=== PATIENT | female | born 1960 | race Caucasian/White ===

== ENCOUNTER 2016-07-15 06:15 | Emergency (ER) | payer OTHER ==
[2016-07-15 06:20] VITALS: TEMP 98.2; O2SAT 94
--- NOTE | 2016-07-15 06:56 | EDPHY ---
HPI/HX/ROS/PE/MDM Narrative: CHIEF COMPLAINT: Atraumatic right hand pain. HPI: This is a 55-year-old female presenting with 3 days of atraumatic right hand pain. The worst pain is in the radial aspect of her hand and does not radiate. This morning when she woke up her hand was severely swollen. She denies falls, traumas, or other complaints. She has been treating the pain with Ibuprofen. REVIEW OF SYSTEMS: Aside from elements discussed in the HPI, a comprehensive 10-point review of systems was reviewed and is negative. PMH: Hypertension, hysterectomy. SOCIAL HISTORY: Works in [employer]. PHYSICAL EXAM: General:Patient is alert, in no acute distress. ENT:Eyes are normal to inspection. ENT inspection normal. Neck: Normal inspection. Full range of motion. Respiratory:No respiratory distress. Breath sounds normal bilaterally. Cardiovascular: Regular rate and rhythm. Strong peripheral pulses. Normal cap refill. Abdomen:The abdomen is nontender to palpation. There are no peritoneal signs. There are normal bowel sounds. Back: Normal to inspection. No tenderness to palpation. Skin: Normal color. No rash. Warm and dry. Extremities: Normal appearance. Right hand: Tenderness along base of radial aspect of thumb and of 1st digital webspace muscle. Neuro: Oriented x3. Normal motor function. Normal sensory function. MDM: This patient presents with nontraumatic pain and swelling of her right wrist, suspicious for de Quervain's tenosynovitis. There is no evidence of trauma so I do not think an x-ray is indicated. The patient has no proximal swelling to suggest DVT and no erythema to suggest infectious process. We will place her in a thumb spica splint and give her follow up with occupational health and hand specialist. General Time Seen by Provider: 07/15/16 06:55 Initial Vital Signs: Initial Vital Signs Temperature (C) 36.8 C 07/15/16 06:18 Heart Rate 65 07/15/16 06:18 Respiratory Rate 16 07/15/16 06:18 Blood Pressure 159/88 H 07/15/16 06:18 O2 Sat (%) 94 07/15/16 06:18 O2 Delivery Mode Room Air Allergies/Adverse Reactions: dexamethasone [From Decadron] Allergy (Verified 07/15/16 06:21) dexamethasone sod phosphate [From Decadron] Allergy (Verified 07/15/16 06:21) erythromycin base Allergy (Verified 07/15/16 06:21) Home Medications: Medication Instructions Recorded Amlodipine Besylate 5 mg PO 11/24/11 Atenolol 100 mg PO 11/24/11 Hydrochlorothiazide 25 mg PO DAILY 11/24/11 [Hydrochlorothiazide 25 MG (RX)] Lisinopril 40 mg PO 11/24/11 Departure - Departure Disposition: Home, Routine, Self-Care Clinical Impression: Tenosynovitis, de Quervain Condition: Good Instructions: Arthralgia (ED) Additional Instructions: Call Dr. Stein, hand surgery, today to set up a follow up appointment, or occupational health specialist. Take 600mg Ibuprofen 3 times daily as needed for pain. Return to the emergency department if you experience serious worsening of condition. Referrals: Katelin Fleming MD [Primary Care Provider] - As per Instructions Lakshmi Stein MD [Medical Doctor] - As per Instructions Report Scribed for: Rian Griffiths Report Scribed by: Tal Niño Date of Report: 07/15/16 Time of Report: 06:55 Physician Review and Approval Statement: Portions of this note were transcribed by a biomedical engineering technologist. I personally performed a history, physical exam, medical decision making, and confirmed accuracy of information the transcribed note.
[2016-07-15 07:35] VITALS: BP 175/76; PULSE 63; RESP 18
== END 2016-07-15 07:34 | disposition home or self-care (01) ==
DX: M65.4 Radial styloid tenosynovitis [de Quervain] (principal); I10 Essential (primary) hypertension
CPT/HCPCS: L3807

== ENCOUNTER → 2016-07-16 | Outpatient (CLI) | payer OTHER | LOC: FIMAGING 12:21 | PROVIDERS: ATTEND Family Medicine | DX: M25.531 Pain in right wrist (principal); R93.6 Abnormal findings on diagnostic imaging of limbs ==

== ENCOUNTER 2018-08-26 09:43 | Emergency (ER) | payer OTHER ==
--- NOTE | 2018-08-26 09:52 | EDPHY ---
H & P Time Seen by Provider: 08/26/18 09:51 - Medical/Surgical History Hx Asthma: No Hx Chronic Respiratory Disease: No Hx Diabetes: No Hx Cardiac Disease: No Hx Renal Disease: No Hx Cirrhosis: No Hx Alcoholism: No Hx HIV/AIDS: No Hx Splenectomy or Spleen Trauma: No Other PMH: HTN, hysterectomy - Social History Smoking Status: Heavy smoker Constitutional: Initial Vital Signs Temperature (C) 36.7 C 08/26/18 09:51 Heart Rate 103 H 08/26/18 09:51 Respiratory Rate 18 08/26/18 09:51 Blood Pressure 160/95 H 08/26/18 09:51 O2 Sat (%) 98 08/26/18 09:51 O2 Delivery Mode Room Air Allergies/Adverse Reactions: dexamethasone [From Decadron] Allergy (Verified 08/26/18 10:01) dexamethasone sod phosphate [From Decadron] Allergy (Verified 08/26/18 10:01) erythromycin base Allergy (Verified 08/26/18 10:01) Home Medications: Medication Instructions Recorded Amlodipine Besylate 5 mg PO 11/24/11 Atenolol 100 mg PO 11/24/11 Hydrochlorothiazide 25 mg PO DAILY 11/24/11 [Hydrochlorothiazide 25 MG (RX)] Lisinopril 40 mg PO 11/24/11 Apixaban [Eliquis] 5 mg PO BID #60 tab 08/26/18 Atenolol [Tenormin 25 mg (*)] 25 mg PO HS #30 tab 08/26/18 Medical Decision Making ED Course/Re-evaluation: CHIEF COMPLAINT: Abnormal EKG HISTORY OF PRESENT ILLNESS: The patient is a 58 y/o female with a history of hypertension complaining of dizziness and abnormal blood pressure for several weeks. The patient takes Amlodipine and Atenolol for her blood pressure. Around 3 weeks ago the shape of her Amlodipine changed and she started feeling dizzy. She stopped taking this pill as she had a visit with her PCP soon. She started taking her old Amlodipine pill as she had some left over. However, she ran our 3-4 days ago and has not taken any Amlodipine for those days. Today she saw her PCP who noticed that the patient had an abnormal EKG and hypertension. Currently she feels like her BP is irregular, but she denies a pounding in her chest or any chest pain. She denies seeing a cell operator. No fever, headache, body aches, lightheadedness, chest pain, shortness of breath, cough, abdominal pain, urinary or bowel complaints, numbness, paresthesias. REVIEW OF SYSTEMS: A comprehensive 10 system review of systems is otherwise negative aside from elements mentioned in the history of present illness and medical decision making. PHYSICAL EXAM: HR: 107, BP: 231/123, O2 Sat, RR. Temp noted General Appearance: Alert, well hydrated, appropriate, and non-toxic appearing. Head: Atraumatic without scalp tenderness or obvious injury Eyes: Pupils equal, round, reactive to light and accommodation, EOMI, no trauma , no injection. Ears: Clear bilaterally, no perforation, normal landmarks Nose: Atraumatic, no rhinorrhea, clear. Throat: There is no erythema or exudates, no lesions, normal tonsils, mucus membranes moist. Neck: Supple, 2+ carotid upstroke, nontender, no lymphadenopathy. Respiratory: No retractions, no distress, no wheezes, and no accessory muscle use. Lungs are clear to auscultation bilaterally. Cardiovascular: Regular rate and rhythm, no murmurs, rubs, or gallops. Bilateral carotid, radial, dorsalis pedis, and posterior tibial pulses intact. Good capillary refill all extremities. Gastrointestinal: Abdomen is soft, nontender, non-distended, no masses, no rebound, no guarding, no peritoneal signs. Musculoskeletal: Normal active ROM of all extremities, atraumatic. Neurological: Alert, appropriate, and interactive. The patient has normal DTRs and non-focal cranial nerves, motor, sensory, and cerebellar exam. Skin: No rashes, good turgor, no nodules on palpation. Past medical history: Hypertension Past surgical history: Hysterectomy Family history: Denies Social history: Employed at [employer], lives in [place], DIAGNOSTICS/PROCEDURES/CRITICAL CARE TIME: EKG: The 12 lead EKG was interpreted by myself as atrial fibrillation with a rate of 99. See hard copy and/or "tracemaster" electronic copy for interpretation. DIFFERENTIAL DIAGNOSIS: The differential diagnosis for the patient's tachycardia included but was not limited to various causes of sinus tachycardia such as dehydration and medicines , SVT, atrial flutter, atrial fibrillation, pulmonary causes. MEDICAL DECISION MAKING: The patient is a 58 y/o female with a history of hypertension presenting with dizziness and abnormal blood pressure for several weeks. The patient takes Amlodipine and Atenolol for her blood pressure but has not been taking Metoprolol regularly for three weeks. Today she saw her PCP who noticed that the patient had an abnormal EKG and hypertension. On exam she has an irregular heart rate with a rate of 107 and a hypertension with a BP of 231/123. EKG and labs ordered. 0956: I interpreted patient's EKG as atrial fibrillation with a rate of 99. 1000: Reassessed patient and discussed EKG findings. I have extensively discussed plan for admission for new-onset atrial fibrillation and plan to start anticoagulants. She is comfortable with plan for admission. 1018: I consulted with Dr. Perez, cell operator, regarding this patient. This patient is in rate-controlled A-fib; he would like to treat her as an outpatient as she does not need to be admitted. Patient will need to take an additional 25mg PO Atenolol 12 hours after taking her initial 100mg PO Atenolol. Patient will also be started on 5mg PO Eliquis. Her first dose of Eliquis and 25mg PO Atenolol administered now. 1025: Reassessed patient and discussed EKG and laboratory findings. I have also discussed plan for new prescriptions and outpatient follow up with Dr. Perez. Return precautions provided; patient is comfortable with this plan. 1102: I reviewed patient's labs, her BNP is mildly elevated but this should improve. She is safe for discharge. - Data Points Laboratory Results: Laboratory Results 08/26/18 10:10 08/26/18 10:10 08/26/18 08/26/18 08/26/18 10:15 10:10 10:10 WBC 7.92 10^3/uL 10^3/uL (3.80-9.50) RBC 5.49 10^6/uL H 10^6/uL (4.18-5.33) Hgb 16.3 g/dL g/dL (12.6-16.3) Hct 48.1 % H % (38.0-47.0) MCV 87.6 fL fL (81.5-99.8) MCH 29.7 pg pg (27.9-34.1) MCHC 33.9 g/dL g/dL (32.4-36.7) RDW 14.1 % % (11.5-15.2) Plt Count 286 10^3/uL 10^3/uL (150-400) MPV 10.9 fL fL (8.7-11.7) Neut % (Auto) 64.0 % % (39.3-74.2) Lymph % (Auto) 25.4 % % (15.0-45.0) Tucker % (Auto) 8.8 % % (4.5-13.0) Eos % (Auto) 0.9 % % (0.6-7.6) Baso % (Auto) 0.8 % % (0.3-1.7) Nucleat RBC Rel Count 0.0 % % (0.0-0.2) Absolute Neuts (auto) 5.07 10^3/uL 10^3/uL (1.70-6.50) Absolute Lymphs (auto) 2.01 10^3/uL 10^3/uL (1.00-3.00) Absolute Monos (auto) 0.70 10^3/uL 10^3/uL (0.30-0.80) Absolute Eos (auto) 0.07 10^3/uL 10^3/uL (0.03-0.40) Absolute Basos (auto) 0.06 10^3/uL 10^3/uL (0.02-0.10) Absolute Nucleated RBC 0.00 10^3/uL 10^3/uL (0-0.01) Immature Gran % 0.1 % % (0.0-1.1) Immature Gran # 0.01 10^3/uL 10^3/uL (0.00-0.10) Sodium 140 mEq/L mEq/L (135-145) Potassium 3.8 mEq/L mEq/L (3.5-5.2) Chloride 105 mEq/L mEq/L (97-110) Carbon Dioxide 25 mEq/l mEq/l (22-31) Anion Gap 10 mEq/L mEq/L (6-14) BUN 23 mg/dL mg/dL (7-23) Creatinine 0.9 mg/dL mg/dL (0.6-1.0) Estimated GFR > 60 Glucose 99 mg/dL mg/dL (70-100) Calcium 9.3 mg/dL mg/dL (8.5-10.4) Magnesium 2.1 mg/dL mg/dL (1.6-2.3) POC Troponin I 0.00 ng/mL ng/mL (0.00-0.08) NT-Pro-B Natriuret Pep 4760 pg/mL H pg/mL (0-125) Medications Given: Discontinued Medications Apixaban (Eliquis) 5 mg PO EDNOW ONE Stop: 08/26/18 10:23 Last Admin: 08/26/18 10:55 Dose: 5 mg Atenolol (Tenormin) 25 mg PO EDNOW ONE Stop: 08/26/18 10:23 Last Admin: 08/26/18 10:55 Dose: 25 mg Point of Care Test Results: Chemistry 08/26/18 10:15 POC Troponin I 0.00 ng/mL ng/mL (0.00-0.08) Departure - Departure Disposition: [facility] Inpatient Acute Clinical Impression: New onset atrial fibrillation Hypertension Qualifiers: Hypertension type: unspecified Qualified Code(s): I10 - Essential (primary) hypertension Condition: Fair Instructions: A-fib (Atrial Fibrillation) (ED) Additional Instructions: 1. Take Eliquis as prescribed, 5mg PO BID. 2. Take an additional 25mg PO Atenolol 12 hours after taking your initial dose of 100mg. 3. Follow up with a cell operator for further testing, as soon as possible, within one week. 4. Follow-up with your primary doctor within 72 hours. Return to the Emergency Department for fever, chest pain, shortness of breath, increasing. We would be happy to reevaluate you and observe you in the hospital at any time. Referrals: Katelin Fleming MD [Primary Care Provider] - As per Instructions Terrell Perez MD [Medical Doctor] - As per Instructions Prescriptions: Apixaban [Eliquis] 5 mg PO BID #60 tab Atenolol [Tenormin 25 mg (*)] 25 mg PO HS #30 tab Report Scribed for: Dalton Banks Report Scribed by: Radha Olmos Date of Report: 08/26/18 Time of Report: 10:00
[2018-08-26] MEDS ORDERED: APIXABAN 5 MG TAB PO ONE (10:22)
[2018-08-26] MEDS ORDERED: ATENOLOL 25 MG TAB PO ONE (10:22)
[2018-08-26 10:27] LABS: PLATELET COUNT 286 10^3/uL (150-400)
[2018-08-26 11:15] VITALS: BP 183/123
--- NOTE | 2018-09-01 14:36 | CPEKG ---
Test Reason : OPEN Blood Pressure : / mmHG Vent. Rate : 099 BPM Atrial Rate : 172 BPM P-R Int : 051 ms QRS Dur : 102 ms QT Int : 385 ms P-R-T Axes : 000 000 014 degrees QTc Int : 495 ms Atrial fibrillation Anterior infarct, old Confirmed by Dalton Banks ([id number]) on 09/01/2018 2:36:10 PM Referred By: Dalton Banks Confirmed By:Dalton Banks
== END 2018-08-26 11:18 | disposition home or self-care (01) ==
DX: I48.91 Unspecified atrial fibrillation (principal); I10 Essential (primary) hypertension; R42 Dizziness and giddiness
CPT/HCPCS: 84484-ER

== ENCOUNTER 2018-10-02 11:48 | Day surgery (SDC) | payer OTHER ==
[2018-10-02] MEDS ORDERED: fentaNYL 100 MCG/2 ML INJ IVP ONE (11:49)
[2018-10-02] MEDS ORDERED: BENZOCAINE UNIT DOSE SPRAY HURRICAINE MM ONE (11:49)
[2018-10-02] MEDS ORDERED: NS 500 ML IV ONE (11:49)
[2018-10-02] MEDS ORDERED: MIDAZOLAM 2 MG/2 ML VIAL IVP ONE (11:49)
[2018-10-02] MEDS ORDERED: PROPOFOL 200 MG/20 ML VIAL ONE ×2 (13:47→13:49)
--- NOTE | 2018-10-02 13:50 | PDANEPAE ---
ANE History of Present Illness aortic valve dysfunction, here for VANCE ANE Past Medical History - Cardiovascular History Hx Hypertension: Yes Hx Arrhythmias: Yes Hx Chest Pain: No Hx Coronary Artery / Peripheral Vascular Disease: No Hx CHF / Valvular Disease: Yes Hx Palpitations: No Cardiovascular History Comment: New onset Afib. 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 - Pulmonary History Hx COPD: Yes Hx Asthma/Reactive Airway Disease: No Hx Recent Upper Respiratory Infection: No Hx Oxygen in Use at Home: No Hx Sleep Apnea: No - Endocrine History Hx Diabetes: No Hypothyroid: No Hyperthyroid: No - Renal History Hx Renal Disorders: No - Liver History Hx Hepatic Disorders: No - Neurological & Psychiatric Hx Hx Neurological and Psychiatric Disorders: No - Cancer History Hx Cancer: No - GI History GERD: no ANE Review of Systems Review of Systems: ANE Patient History - Allergies Allergies/Adverse Reactions: dexamethasone [From Decadron] Allergy (Verified 08/26/18 10:01) dexamethasone sod phosphate [From Decadron] Allergy (Verified 08/26/18 10:01) erythromycin base Allergy (Verified 08/26/18 10:01) - Home Medications Home Medications: Amlodipine Besylate 5 mg PO 11/24/11 [Last Taken 10/02/18] Atenolol 100 mg PO 11/24/11 [Last Taken 10/02/18] Hydrochlorothiazide [Hydrochlorothiazide 25 MG (RX)] 25 mg PO DAILY 11/24/11 [ Last Taken 10/02/18] Lisinopril 40 mg PO 11/24/11 [Last Taken 10/02/18] Lovastatin 20 mg PO DAILY 10/02/18 [Last Taken 10/02/18] - Smoking Hx Smoking Status: Former smoker ANE Labs/Vital Signs - Vital Signs Height: 157 cm Weight: 90.7 kg ANE Physical Exam - Airway Neck exam: FROM, increased neck circumference Mallampati Score: Class 2 Mouth exam: normal dental/mouth exam - Pulmonary Pulmonary: no respiratory distress, no rales or rhonchi - Cardiovascular Cardiovascular: regular rate and rhythym, no murmur, rub, or gallop - ASA Status ASA Status: III ANE Anesthesia Plan Anesthesia Plan: GA with mask Total IV Anesthesia: Yes
--- NOTE | 2018-10-02 13:53 | PDHPUP ---
History & Physical Update H&P update statement: This history and physical update is based on an assessment of the patient which was completed after admission or registration (within 24 hours), but prior to the surgery/procedure. H&P update: H&P reviewed & patient examined, no change in patient's condition since H&P completed
[2018-10-02] MEDS ORDERED: fentaNYL 100 MCG/2 ML INJ ONE (14:08)
[2018-10-02] MEDS ORDERED: METOCLOPRAMIDE 10 MG/2 ML VIAL IVP PRN (14:21)
[2018-10-02] MEDS ORDERED: ONDANSETRON 4 MG/2 ML VIAL IVP PRN (14:21)
[2018-10-02] MEDS ORDERED: fentaNYL 100 MCG/2 ML INJ IVP PRN (14:21)
[2018-10-02] MEDS ORDERED: HYDROCODONE/APAP 5/325 TAB PO PRN (14:21)
[2018-10-02] MEDS ORDERED: MEPERIDINE 25 MG/0.5 ML AMP IVP PRN (14:21)
[2018-10-02] MEDS ORDERED: NALOXONE HCL 0.4 MG/ML INJ IVP PRN (14:21)
--- NOTE | 2018-10-02 14:22 | POSTANESTH ---
Post Anesthetic Evaluation Cardiovascular Status: Normal, Stable Respiratory Status: Normal, Stable Level of Consciousness/Mental Status: Can Participate in Eval, Moderately Sleepy Pain Control: Adequate, Prn Tx Ordered Nausea/Vomiting Control: Adequate, Prn Tx Ordered Complications Possibly Related to Anesthesia: None Noted
--- NOTE | 2018-10-03 08:46 | ECHO ---
[email or web address] [address] [address] [address]: [phone] Echocardiography Examination Transesophageal Name: BELINDA NARVAEZ MR#: Study Date: 10/02/2018 Study Time: 01:27 PM Date of : 1960 Age: 58 year(s) Height: 157.5 cm (62 in.) Weight: 90.72 kg (200 lb.) BSA: 1.91 m2 Gender: Female Examination: VANCE Contrast: I.V. dose of agitated saline Image Quality: Adequate Rhythm: Atrial fibrillation Heart Rate: BP: / Indication: eval aortic valve Procedure Staff Referring Physician: Wool Shearing Supervisor: Bree Dyer [facility] Reading Physician: Winter Shrestha MD Requesting Provider: Ordering Physician: Winter Shrestha MD Indication: eval aortic valve Acute complication: None Measurements Chambers AV/MV Label Value Normal Value Label Value Normal Value LVOTd 2.2 cm (1.8cm - 2cm) AR PHT 0.36 s LVOT VTI 25.6 cm (18cm - 22cm) AR PHT 363 ms LVDd, 2D 4.9 cm (3.9cm - 5.3cm) AR Vena contracta 0.8 cm LVEF, BP 65 % (55% - 70%) AR Vmax 4.48 m/s LVOT PGmean 4 mmHg AV PGmax 38 mmHg LVOT Vmean 0.91 m/s AV PGmean 18 mmHg Additional Vessels AV Vmax 3.1 m/s Label Value Normal Value LORRIE (VTI) 1.7 cm2 AoAsc 3.9 cm LORRIE 2D 2.5 cm2 Conclusions 1. The left ventricle is normal in size and systolic function. Ejection fraction is 65%. No regional wall motion abnormalities. 2. There is no thrombus in the left atrial appendage. 3. Mild mitral valve thickening with mild mitral regurgitation. 4. The aortic valve is functionally bicuspid with partial fusion of the left and right coronary cusps and [id number] calcification of the valve leaflets. Severe aortic regurgitation. Mild aortic stenosis. 5. Mild tricuspid regurgitation Patient: BELINDA NRAVAEZ MRN: Study Date: 10/02/2018 Page 1 of 2 01:27 PM 6. Ascending aorta is mildly dilated at 3.9 cm. Findings Left Ventricle: Left ventricle is normal in size. Normal global systolic left ventricular function. The ejection fraction, measured by Simpsons method, is 65 %. There is mild concentric left ventricular hypertrophy. Left Atrium: Left atrial enlargement. Spontaneous contrast in the left atrium. Left Atrium Appendage: No thrombus is identified. IAS: An agitated saline study was performed and was negative for intracardiac shunting. Mitral Valve: Mild mitral regurgitation. There is mild mitral thickening. Aortic Valve: The aortic valve is functional bicuspid with left and right coronary cusps fused and mild to moderately calcified. . Severe aortic regurgitation is present. There is mild aortic stenosis. There is flow reversal in the descending thoracic aorta. Aortic Valve Measurements AV Vmax is 3.10 m/s. LORRIE 2D is 2.5 cm2. AV PGmax is 38 mmHg. AV PGmean is 18 mmHg. AR PHT is 363 ms. LVOT VTI / AV VTI is 0.44. LORRIE (VTI) is 1.7 cm2. Tricuspid Valve: Tricuspid valve leaflets are structurally normal. Mild tricuspid regurgitation. Pulmonic Valve: Pulmonic leaflets are structurally normal. No pulmonic valve regurgitation is evident. Aorta: The ascending aorta measures 3.9 cm. Pulmonary Vein: There is systolic blunting in the pulmonary vein. Pericardium: No pericardial effusion. Exam Details Procedure Ordered: VANCE Procedure Status: Routine study Image Quality: Adequate Consent: Risks, alternatives of procedure explained to patient, informed consent obtained Probe Insertion: Attending arranging funeral director Contrast: I.V. dose of agitated salineIntravenous contrast was administered to evaluate intracardiac shunting Facility Location: Cardiac Echo 1 (No Signature Object) Patient: BELINDA NARVAEZ MRN: Study Date: 10/02/2018 Page 2 of 2 01:27 PM [id number]
== END 2018-10-02 15:15 | disposition home or self-care (01) ==
LOC: FCATH 11:48
PROVIDERS: ATTEND Internal Medicine Cardiovascular Disease
PROC: B245ZZ4 Ultrasonography of Left Heart, Transesophageal (ICD-10-PCS; principal; 2018-10-02)
DX: I35.1 Nonrheumatic aortic (valve) insufficiency (principal); I48.1 Persistent atrial fibrillation; I10 Essential (primary) hypertension; Z87.891 Personal history of nicotine dependence
CPT/HCPCS: J2704; J3010

== ENCOUNTER 2018-11-09 12:50 | Inpatient (IN) | payer OTHER | END 2018-11-16 12:45 | disposition home or self-care (01) | LOC: F2N 12:50 → F2W 11-11 12:20 → F2N 14:55 → F2W 16:41 ==